=== PATIENT | male | born 1975 | race Caucasian/White ===

== ENCOUNTER 2023-03-22 06:15 | Day surgery (SDC) | payer BC, MEDICAID ==
[~2023-03-22 06:15] MED LIST: Lactated Ringers 1,000 ML IV SCH; Morphine 8 MG, EPINEPHrine 0.3 MG, Cefuroxime 750 MG, Ketorolac 30 MG, Sodium Chloride ... PRN; Pregabalin 25 MG Cap PO ONE; Sodium Chloride 0.9% 10 ML Syringe FLUSH PRN; Sodium Chloride 0.9% 10 ML Syringe FLUSH SCH; oxyCODONE ER 10 MG TAB.ER PO ONE
[2023-03-22] MEDS ORDERED: Propofol 200 MG/20 ML SDV ONE ×3 (06:27→08:23)
[2023-03-22] MEDS ORDERED: Midazolam 1 MG/ML 2 ML SDV ONE (06:28)
[2023-03-22] MEDS ORDERED: ceFAZolin 2 GM Vial ONE (06:28)
[2023-03-22] MEDS ORDERED: fentaNYL 100 MCG/2 ML SDV ONE (06:28)
[2023-03-22] MEDS ORDERED: Dexmedetomidine 200 MCG/2 ML SDV ONE (06:34)
[2023-03-22] MEDS ORDERED: EPINEPHrine 1 MG/ML SDV ONE (06:34)
[2023-03-22] MEDS ORDERED: Ropivacaine 0.5% 5 MG/ML 30 ML SDV ONE (06:34)
[2023-03-22] MEDS ORDERED: Triamcinolone Acetonide 40 MG/ML 1 ML SDV ONE (06:39)
[2023-03-22] MEDS ORDERED: Bupivacaine 0.25% 10 ML SDV ONE (06:39)
[2023-03-22] MEDS ORDERED: Ondansetron 4 MG/2 ML SDV IVPUSH PRN (07:41)
[2023-03-22] MEDS ORDERED: HYDROmorphone 0.5 MG/0.5 ML Syringe IVPUSH PRN (07:41)
[2023-03-22] MEDS ORDERED: fentaNYL 100 MCG/2 ML SDV IVPUSH PRN (07:41)
[2023-03-22] MEDS: Tranexamic Acid 1,000 MG/10 ML Vial ONE ×2 (07:51→08:22)
[2023-03-22] MEDS: Vancomycin 1 GM SDV ONE ×2 (07:51→08:22)
[2023-03-22] MEDS ORDERED: Lactated Ringers 1,000 ML IV ONE (08:00)
[2023-03-22] MEDS ORDERED: Ondansetron 4 MG/2 ML SDV ONE (08:14)
[2023-03-22] MEDS ORDERED: Ketorolac 30 MG/ML SDV ONE (08:14)
[2023-03-22] MEDS ORDERED: Cyclobenzaprine 10 MG Tab PO PRN (09:55)
[2023-03-22] MEDS ORDERED: oxyCODONE 5 MG Tab PO PRN (09:55)
== END 2023-03-22 14:30 | disposition home or self-care (01) ==
LOC: JD.SDS 06:15 → MERGE 10:00 → JD.SDS 14:30
PROVIDERS: ATTEND Orthopaedic Surgery
DX: M17.11 Unilateral primary osteoarthritis, right knee (principal); R03.0 Elevated blood-pressure reading, without diagnosis of hypertension; Z72.0 Tobacco use; Z79.899 Other long term (current) drug therapy
CPT/HCPCS: 0055T; 27447; 64447; 73560; 97110; 97116; 97161; A9270; C1713; C1776; J0171; J0690; J0697; J1885; J2250; J2270; J2405; J2704; J2795; J3010; J3301; J3370; J3490; J7030; J7120; 01402

== ENCOUNTER 2024-01-14 06:59 | Day surgery (SDC) | payer BC ==
[~2024-01-14 06:59] MED LIST changes: -Lactated Ringers 1,000 ML IV SCH; -Morphine 8 MG, EPINEPHrine 0.3 MG, Cefuroxime 750 MG, Ketorolac 30 MG, Sodium Chloride ... PRN; -oxyCODONE ER 10 MG TAB.ER PO ONE
[2024-01-14] MEDS: Lactated Ringers 1,000 ML IV SCH (07:15)
[2024-01-14] MEDS ORDERED: oxyCODONE ER 10 MG TAB.ER PO ONE (07:30)
[2024-01-14] MEDS ORDERED: Pregabalin 25 MG Cap PO ONE (07:30)
[2024-01-14] MEDS: Pregabalin 25 MG Cap PO ONE (07:32)
[2024-01-14] MEDS: oxyCODONE ER 10 MG TAB.ER PO ONE (07:33)
[2024-01-14] MEDS ORDERED: Tranexamic Acid 1,000 MG/10 ML Vial ONE (07:39)
[2024-01-14] MEDS ORDERED: Vancomycin 1 GM SDV ONE (07:39)
[2024-01-14] MEDS ORDERED: HYDROmorphone 0.5 MG/0.5 ML Syringe IVPUSH PRN (08:00)
[2024-01-14] MEDS ORDERED: Ondansetron 4 MG/2 ML SDV IVPUSH PRN (08:00)
[2024-01-14] MEDS ORDERED: fentaNYL 100 MCG/2 ML SDV IVPUSH PRN (08:00)
[2024-01-14] MEDS ORDERED: fentaNYL 100 MCG/2 ML SDV ONE (08:03)
[2024-01-14] MEDS ORDERED: Midazolam 1 MG/ML 2 ML SDV ONE (08:03)
[2024-01-14] MEDS ORDERED: Propofol 200 MG/20 ML SDV ONE ×4 (08:03→09:07)
[2024-01-14] MEDS ORDERED: ceFAZolin 2 GM Vial ONE (08:35)
[2024-01-14] MEDS ORDERED: Ropivacaine 0.5% 5 MG/ML 30 ML SDV ONE (10:07)
[2024-01-14] MEDS: Morphine 8 MG, EPINEPHrine 0.3 MG, Cefuroxime 750 MG, Ketorolac 30 MG, Sodium Chloride ... PRN (13:44)
[2024-01-14] MEDS: Vancomycin 1 GM SDV ONE (13:45)
[2024-01-14] MEDS: Tranexamic Acid 1,000 MG/10 ML Vial ONE (13:46)
[2024-01-14] MEDS: oxyCODONE 5 MG Tab PO PRN (14:25)
== END 2024-01-14 14:29 | disposition home or self-care (01) ==
LOC: JD.SDS 06:59
PROVIDERS: ATTEND Orthopaedic Surgery
DX: M17.12 Unilateral primary osteoarthritis, left knee (principal); Z79.82 Long term (current) use of aspirin; Z79.899 Other long term (current) drug therapy; Z88.6 Allergy status to analgesic agent
CPT/HCPCS: 0055T; 27447; 64447; 73560; 97110; 97161; A9270; C1713; C1776; J0171; J0690; J0697; J1885; J2250; J2270; J2704; J2795; J3010; J3370; J7120; 01402; J3490